=== PATIENT | female | born 1980 | race Caucasian/White ===

== ENCOUNTER → 2019-09-01 17:00 | Outpatient (CLI) | payer BC, SELFPAY ==
[2019-09-01 21:48] LABS: Chlamydia Trachomatis by PCR Negative (Negative); Neisserai gonorrhoeae by PCR Negative (Negative); Probe Check PASS; Sample Adequacy Control PASS; Specimen Processing Control PASS
== END ==
PROVIDERS: Referring Provider Obstetrics & Gynecology; Visit Provider Obstetrics & Gynecology
DX: Z11.3 Encounter for screening for infections with a predominantly sexual mode of transmission (principal)
CPT/HCPCS: 87491; 87591

== ENCOUNTER → 2019-09-30 10:45 | Outpatient (CLI) | payer BC, SELFPAY ==
[2019-09-30 13:19] LABS: Absolute Neutrophil Count 4.1 X10^3/uL (2.0-7.7); Basophil# 0.02 X10^3/uL; Basophil% 0.3 % (0-1); Eosinophil# 0.12 X10^3/uL; Hematocrit 38.6 % (37-47); Lymphocyte % 24.8 % (19-41); Mean Corp Hgb Conc 33.7 g/dL (32-36); Mean Corpuscular Hgb 31.7 pg (27.0-32.0); Mean Corpuscular Volume 94.1 fL (81-99); Mean Platelet Vol. 10.2 fl (6.2-12.0); Monocyte# 0.35 X10^3/uL; Monocyte% 5.8 % (0-10); NRBC Flagged by Analyzer 0 % (0-5); Neutrophil # 4.05 X10^3/uL (2.7-7.7); Neutrophil % 67.1 % (47-70); Platelet Count 193 K/mm3 (150-450); RBC Distribution Width CV 12.2 % (11.6-14.6); RBC Distribution Width SD 42.2 fl (35.1-43.9)
[2019-09-30 13:27] LABS: Color, Urine Yellow (Yellow); Glucose, Dipstick Normal (Normal); Ketone-Dipstick Negative (Negative); Leukocyte Esterase-Dipstick Negative /ul (Negative); Nitrite-Dipstick Negative (Negative); Occult Blood-Urine Negative /ul (Negative); Protein-Dipstick Negative (Negative); Urine Bilirubin Dipstick Negative (Negative); Urine Clarity Sl. Cloudy (Clear); Urine Urobilinogen Normal (Normal)
[2019-09-30 13:36] LABS: Amphetamine Urine VISTA NEGATIVE (<1000 ng/mL); Barbiturate Urine VISTA NEGATIVE (< 200 ng/mL); Benzodiazepine Urine VISTA NEGATIVE (< 200 ng/mL); Cocaine Urine VISTA NEGATIVE (< 300 ng/mL); Ecstacy Urine VISTA NEGATIVE (< 500 ng/mL); Methadone Urine VISTA NEGATIVE (< 300 ng/mL); PCP Urine VISTA NEGATIVE (< 25 ng/mL); THC Urine VISTA NEGATIVE (< 50 ng/mL); Vista UDS pH Range 6
[2019-09-30 13:37] LABS: Thyroid Stim Hormone (TSH) 0.36 uIU/mL (0.358-3.74)
[2019-09-30 14:18] LABS: HIV - WCH Non-Reactive (Nonreactive); Hepatitis B Surface Antigen Non-Reactive (Nonreactive); Hepatitis C Antibody Non-Reactive (Nonreactive); Rubella IgG 65.2 IU/mL
[2019-10-06 01:53] LABS: Prenatal RPR NONREACTIVE (NONREACTIVE)
== END ==
PROVIDERS: Visit Provider Obstetrics & Gynecology
DX: Z34.81 Encounter for supervision of other normal pregnancy, first trimester (principal)
CPT/HCPCS: 36415; 80307; 81002; 84443; 85025; 86703; 86762; 86803; 87340

== ENCOUNTER 2019-12-23 18:55 | Inpatient (IN) | payer BC, MEDICAID, SELFPAY ==
[2019-12-23 20:15] VITALS: BMI 35.2
[2019-12-23] MEDS: Lactated Ringers 1,000 ML 50 ML IV (20:30)
[2019-12-23 21:03] LABS: Absolute Lymphocyte Count 1.37 X10^3/uL (0.83-4.51); Absolute Neutrophil Count 3.2 X10^3/uL (2.0-7.7); Basophil# 0.01 X10^3/uL; Basophil% 0.2 % (0-1); Eosinophil# 0.18 X10^3/uL; Eosinophils% 3.4 % (0-5); Hematocrit 38.9 % (37-47); Hemoglobin 13.3 g/dL (12.0-15.0); Lymphocyte # 1.37 X10^3/ul (4.0); Mean Corp Hgb Conc 34.2 g/dL (32-36); Mean Corpuscular Hgb 33.3 pg (27.0-32.0); Mean Corpuscular Volume 97.3 fL (81-99); Mean Platelet Vol. 9.9 fl (6.2-12.0); Monocyte# 0.53 X10^3/uL; Monocyte% 10.1 % (0-10); NRBC Flagged by Analyzer 0 % (0-5); Neutrophil # 3.16 X10^3/uL (2.7-7.7); Neutrophil % 59.9 % (47-70); Platelet Count 195 K/mm3 (150-450); RBC Distribution Width CV 12.3 % (11.6-14.6); RBC Distribution Width SD 44.1 fl (35.1-43.9); White Blood Count 5.3 K/mm3 (4.4-11.0)
[2019-12-23] MEDS: miSOPROStol 200 MCG Tablet 400 MCG VAGINAL (21:09)
--- NOTE | 2019-12-23 21:56 | HP.PCM_ITS ---
- Problem List (1) Intrauterine Status: Acute (2) Encounter for induction of labor Status: Acute History Date of Admission: 12/23/19 Final JUAN: 04/26/20 Final JUAN Source: US <20 weeks Gestational age: 22 Weeks and 1 Days History of this : This is a 39 year-old, G [8], P [4], at 22 weeks gestational age. Arrived in [facility] office today for anatomy US. US revealed no FHT with a GA of 15w6d and NINA of 3. At 18 weeks in office there was a FHT of 169 on US and everything looked fine at that time. Stella reports never feeling FM with anterior placenta and doesn't think her water broke at all. Shared decision for IOL with Cytotec. Hx of 4 prior c-sections. Attending MD, anesthesia and pediatrics aware of IOL. Allergies No Known Allergies Allergy (Verified 12/23/19 20:16) Smoking Status: Former smoker Alcohol: None Number of Fetus(es): 1 History Past Pregnancies: Past Pregnancies Delivery Date Name GA/ Weeks Outcome Route Wt Sex Labor Length Anesthesia Delivery Location Provider FOB 10/18 38 viable 6.14 M 24 spinal [place] 09/19 6 SAB 06/20 39 viable 7.0 M 0 spinal [place] 10/21 39 viable 7.0 M 0 spinal [place] 10/23 6 SAB 05/24 7 SAB 08/25 39 viable 7.0 M 0 spinal [place] Labs: Mom's Problem List Problem Status Onset Code Intrauterine Acute Encounter for induction of labor Acute Z34.90 Mom's Labs & Results 12/23/19 12/23/19 20:30 20:30 WBC 5.3 RBC 4.00 L Hgb 13.3 Hct 38.9 MCV 97.3 MCH 33.3 H MCHC 34.2 RDW Std Deviation 44.1 H RDW Coeff of Jackelin 12.3 Plt Count 195 MPV 9.9 Immature Gran % (Auto) 0.400 Neut % (Auto) 59.9 Lymph % (Auto) 26.0 [place] % (Auto) 10.1 H Eos % (Auto) 3.4 Baso % (Auto) 0.2 Absolute Neuts (auto) 3.2 Absolute Lymphs (auto) 1.37 Nucleated RBC % 0 Blood Type O NEGATIVE Antibody Screen NEGATIVE Course Did the patient receive Yes care? Labs Blood Type: O RH: NEGATIVE RPR/VDRL/Syphilis Nonreactive Rubella status Immune HbSAg Negative Date Done: 09/30/19 Chlamydia Negative Gonorrhea Negative HIV/AIDS Non-Reactive Group B Strep: Not Done Current Obstetrical History Gestational Diabetes No Incompetent Cervix No Infertility No IUGR No Macrosomia No Hypertension/Pre-eclampsia No Placenta Previa/Abruption No PTL/PROM No Uterine anomaly No Oligohydramnios Yes Polyhydramnios No Multiple gestation No Past Medical History Asthma No Diabetes No Hypertension No Heart disease No Mitral valve prolapse No Neurologic/Seizure disorder/ No Migraines Kidney disease No Liver disease No Varicosities Yes Clotting disorders/Hx of DVT No Thyroid Dysfunction No Other medical diseases No Psychiatric disorders Yes: depression Major trauma No Abnormal PAP smear No Sleep apnea No Mammogram in the last 2 years No Social History Marital Status: Alleged father Lazarus Hx Smoking No Smoking Status Former smoker Expected Infant Delivery Method: Spontaneous Vaginal Number of Visits: 3 Review of Systems Constitutional: Denies: Chills, Fever, Weight Change HEENT: Denies: Head Aches, Sinus Congestion, Sinus Drainage Cardiovascular: Denies: Chest Pain, Palpitations Respiratory: Denies: Cough, Shortness of breath at rest, Sputum production Gastrointestinal: Denies: Abdominal Pain, Nausea, Vomiting Genitourinary: Denies: Dysuria Musculoskeletal: Denies: Joint Pain, Joint Tenderness Skin: Denies: Rash, Wounds Neurological: Denies: Numbness, Tingling, Focal weakness Psychiatric: Reports: Anxiety. Denies: Depression, Homicidal Ideations, Suicidal Ideations Hematologic/ Lymphatic: Denies: Easy Bruising, Easy Bleeding Physical Exam General: Alert, Oriented x3, No apparent distress HEENT: Atraumatic, Normocephalic. Negative for: Thyromegaly, Lymphadenopathy Cardiovascular: Regular rate, Regular Rhythm Lungs: Clear to auscultation Abdomen: Bowel Sounds Present, Gravid Neurological: Deep Tendon Reflexes 2+/4 and Symmetrical, Neuro grossly intact MID LEVEL NET DEVELOPER: Normal external genitalia. Negative for: Vulvar lesions Cervix Dilation (cm): 0 - closed/thick/high soft midposition Station: -3 Effacement (%): 0 Assessment/Plan All Active Problems Intrauterine (Acute) Encounter for induction of labor (Acute) A: This is a 39 year-old, G [8], P [4], at 22 weeks gestational age. Intrauterine demise SVE closed/high/thick Off and on crying, at bedside P: Admit for IOL with Cytotec protocol Xanax 1mg for anxiety Discussed pain medication options RN to review all options available to her Expect vaginal delivery
[2019-12-23] MEDS: Sertraline 50 MG Tablet PO (22:29)
[2019-12-23] MEDS: ALPRAZolam 0.5 MG Tablet 1 MG PO (22:29)
[2019-12-24] MEDS: miSOPROStol 200 MCG Tablet 400 MCG VAGINAL ×3 (03:26→11:43)
--- NOTE | 2019-12-24 03:30 | PCM.PN.BLA ---
Progress Note LABOR PROGRESS NOTE S: Not having any pain or cramping. Sleeping well and comfortable. O: AVSS SVE still thick/closed/high, but cervix soft and anterior A: Induction of labor for demise Tolerating Cytotec well P: Will place second dose of Cytotec vaginally To rest and call staff when starting to feel cramping or contractions. At that time will start continuous monitoring d/t hx of four c-sections. Expect
--- NOTE | 2019-12-24 07:30 | PCM.PN.BLA ---
Progress Note LABOR PROGRESS NOTE S: Not having any pain or cramping. Slept well. Wants to eat breakfast O: AVSS SVE still thick/closed/high, but cervix soft and anterior Awake, smiling in bed A: Induction of labor for demise Tolerating Cytotec well P: Third dose of Cytotec placed Regular diet order placed To call if cramping or contractions start Expect Will update attending Dr. Null on POC
[2019-12-24] MEDS: Acetaminophen 325 MG Tablet PO ×2 (11:44→15:45)
--- NOTE | 2019-12-24 12:01 | PCM.PN.BLA ---
Progress Note LABOR PROGRESS NOTE S: Starting to have slight cramping as well as a headache. Wants to get home tonight O: VSS SVE still thick/closed/high, but cervix soft and anterior Awake in bed and tearful wanting this to be over to go home to her boys tonight. A: Induction of labor for demise Tolerating Cytotec well Starting to express verbally more emotions and feelings about loss P: Fourth dose of Cytotec placed Regular diet order for lunch to continue To call if cramping becomes regular or worsens Expect Spoke with Dr. Null about POC. Agrees that for fifth dose may increase Cytotec dosing if patient wants to. Patient agreeable.
[2019-12-24] MEDS: Lactated Ringers 1,000 ML 50 ML IV (12:40)
[2019-12-24] MEDS: Ondansetron 4 MG/2 ML Vial IV (14:38)
[2019-12-24] MEDS: fentaNYL 100 MCG/2 ML Ampul IV ×2 (14:49→19:14)
[2019-12-24] MEDS: Lactated Ringers 500 ML 999 ML IV (14:53)
[2019-12-24] MEDS: Oxytocin 30 units/NS 500 ml 30 UNITS/500 ML IV.SOLN 334 UNITS IV (15:30)
--- NOTE | 2019-12-24 16:50 | NURSING ---
sheet metal worker helper in to see pt and discuss pastoral care with pt at this time.
--- NOTE | 2019-12-24 16:55 | CASEMGMT ---
SOCIAL WORK MET WITH MOB AND FOB IN ROOM. MUCH EMOTIONAL SUPPORT PROVIDED. MOB HAD REQUESTED BABY GIRL BE BAPTIZED AND CLINICAL NURSE SPECIALIST WAS CONTACTED AND ASSISTED IN CONTACTING A [employer]IAN HEATING ELEMENT BUILDER PER REQUEST OF MOB. HEATING ELEMENT BUILDERESPINOZA TO BE IN AROUND 6PM. THIS WORKER TO REMAIN AVAILABLE FOR NEEDS. STAFF MAYCO. MELANIA WYATT, PATTERN HANGER.
--- NOTE | 2019-12-24 17:29 | PCM.OPRPT ---
Problem List (1) Intrauterine Status: Inactive (2) Encounter for induction of labor Status: Inactive (3) Vaginal delivery following previous section, delivered Status: Acute Vaginal Delivery Maternal Presentation: Medically Indicated Induction Method of Induction: Cytotec Medical Reason for Induction: demise Amniotic Membrane Rupture Type: Spontaneous Rupture of Membrane time: 1420 Amniotic Fluid Description: Clear Final JUAN: 04/26/20 Final JUAN Source: US <20 weeks Gestational age: 22 Weeks and 2 Days Date of Procedure: 12/24/19 Pre-Operative Diagnosis: Medical induction of labor for demise Post-Operative Diagnosis: S/P Vaginal delivery after Surgery/ Procedure Performed: Spontaneous Vaginal Delivery Type of Anesthesia: None Description of Procedure: SROM of clear amniotic fluid at 1430 with contractions starting regularly soon after. Nitrous oxide mask in use when check writer salesperson's arrival to room. Patient not tolerating pain well and requesting something stronger. IV Fentanyl given and discontinued nitrous mask. At 1518 felt the urge to push. Non-viable fetus delivered at 1520 via rebekah breech. Cord clamped and cut by CNM. Fetus inspection revealed intact female fetus. After 30 minutes, placenta not detached. Dr. Null, attending MD called and okay given to allow placenta time for delivery. States up to 4 hours is fine. At 1802 patient wishes to get placenta out per provider since not delivering on its on. Cervix dilated to 5 and able to palpate uterus sitting on top of cervix, but she was unable to tolerate manual removal with check writer salesperson's hand. Attending okay with check writer salesperson removing placenta via ring forceps. Patient tried to sit on toilet to push prior. When check writer salesperson attempted to remove placenta SVE 2-3/50 with placenta detached sitting inside uterine cavity. Marriage Performer unable to manipulate placenta out. Attending Dr. Null called for removal. Patient given IV Fentanyl 50mg. At 1926 placenta was out and will be sent for pathology. See note by attending. EBL 250. Will get one more dose of Ampicillin and observe. Wants to discharge as soon as possible. Presentation: Rebekah Breech Placenta Disposition: Sent to Pathology Cord Vessel Description: unable to tell with decomposition Cord Entanglement: None A gender: Female Episiotomy Description: None Laceration: None Medications given after delivery: IV Pitocin
[2019-12-24] MEDS: Oxytocin 30 units/NS 500 ml 30 UNITS/500 ML IV.SOLN 167 UNITS IV (18:38)
[2019-12-24] MEDS: 0.9% Saline Lock 10 ML Syringe IV ×2 (19:14→21:49)
--- NOTE | 2019-12-24 19:26 | PLAC_PTH ---
PATIENT: LEI FLANAGAN LOC: [facility] U#:[id number] AGE/SX: 39/F ROOM: WP021 RE12/23/[address]: Mary Jo Howard CNM : 1980 BED: 1 DIS: 12/24/2019 SPEC #: [id number] RECD: 12/24/19 20:33 STATUS: VIDYA REWicho #: [id number] BANDAR: 12/24/19 19:[address]: Mary Jo Howard DEPT: SURGICAL PATHOLOGY RECD BY: Mihir Cordon ENTERED: 12/26/19 08:17 SP TYPE: PLACENTA OTHR DR: No Primary Care Phys Tissues: Placenta, NOS Procedures: Surgery Specimen Level V HEADER OPERATION: Vaginal delivery PRE-OP DIAGNOSIS: Intrauterine demise TISSUE SUBMITTED: Placenta MICROSCOPIC DIAGNOSIS Placenta: Placental disc - immature placenta (82.1 gm). - Submembranous hematoma (2 cm in greatest dimension). - Focal organized thrombus formation, blood vessels, surface. Membranes - no pathologic diagnosis. Umbilical cord - three blood vessels and no pathologic diagnosis. SJ:yash 12/27/19 COMMENT Case has been reviewed in consultation with Dr. Coffman who concurs with the above diagnosis. IDC:AM MICROSCOPIC DESCRIPTION Slides are reviewed. GROSS DESCRIPTION SPECIMEN: PLACENTA / CLINICAL INFORMATION: A. Weight: Not noted B. Gestational Age: 22 weeks C. Sex: Female The specimen consists of a placenta with attached membranes and umbilical cord. PLACENTAL WEIGHT (POST FIXATION): 82.1 gm PLACENTAL DIMENSIONS: 11.5 x 6.5 x 2.5 cm PLACENTAL SHAPE: Usual ovoid PLACENTAL WEIGHT FOR GESTATIONAL AGE: less than 10 percentile MEMBRANES - Present A. Insertion: Marginal B. Site of rupture from edge: At edge of placental disc C. Color of membrane: Blue-khan D. Abnormalities: None UMBILICAL CORD - Present A. Color: Blue-khan B. Insertion: Eccentric C. Length: 31 cm D. Diameter: 0.8 cm E. Number of vessels: Three F. Abnormalities: None PLACENTAL DISC - Present A. Color of surface: Blue-khan B. surface abnormalities: None C. Maternal cotyledons: Intact with minimal tears D. Attached retro placental clot: No clot E. Cut surface: Dark red and spongy F. Lesions: Serial sections reveal a submembranous hematoma measuring 2 cm in greatest dimension. G. Separate clot: Absent SECTIONS SUBMITTED: 1. Umbilical cord ( end inked) 2. Placental membranes 3. Placental disc, and maternal surfaces, submembranous hematoma. 4. Placental disc, and maternal surfaces 5. Placental disc, and maternal surfaces 6. Placental disc, and maternal surfaces AM:yash 12/26/19 TC:5 CPT: 14043
--- NOTE | 2019-12-24 19:40 | PCM.OPRPT ---
Report of Operation Date of Procedure: 12/24/19 Pre-Operative Diagnosis: Retained Placenta Post-Operative Diagnosis: Retained Placenta Surgery/Procedure Performed:: Extraction of Retained Placenta Description of Surgical Findings:: 15 cm endometrial cavity with retained products of conception. Cervix dilated approximately 3 to 4 cm. Umbilical cord from 20-week demise still attached to placenta. Type of Anesthesia:: IV Sedation Specimen's removed: Retained placenta Estimated Blood Loss (mL): 250 cc Fluids Replaced: Crystalloid and IV Pitocin Description of Procedure: Patient delivered a 20-week demise approximately 4 hours ago after Cytotec induction overnight. Despite IV Pitocin placenta has not delivered and cervix has not progressed. However the placenta seems to be detached inside the uterus. Patient is not having bleeding but she desires to go home. Patient was given IV sedation and speculum was placed in the vagina. The cervix was visualized and using ring forceps the placental edge was grasped and teased through the uterine cervix. Afterwards the uterus was gently curetted with a banjo curette and remaining placental tissue was removed. The uterus was examined with ultrasound and noted to be clear of placental tissue. Bleeding subsided and the procedure was terminated. Patient tolerated procedure well and we will continue IV fluids and monitoring for another 2 hours. She is scheduled to get another dose of ampicillin and is already had gentamicin. Plan is to send the patient home with oral Keflex for several days. Specimen to pathology: placenta Complications: none - Complications None
--- NOTE | 2019-12-24 19:57 | DCINST_ITS ---
Discharge Diet: No Restrictions Discharge Activity: Return to Normal Activity, May not drive while taking narcotic pain medications., May Shower May resume sexual activity in: 4-6 weeks Additional Activity Instructions:: Nothing in the vagina for 4-6 weeks. You may return to work/school in 6 weeks. To take Tylenol for fever >100.4. Additional Instructions: If you experience any of the following, contact your healthcare provider. * Bleeding that soaks a pad every hour for 2 hours * Fever 101.4 or higher * Unrelieved abdominal pain * Problems urinating (including inability to urinate or burning while urinating). * Visual changes * Severe headache * Flu-like symptoms * Pain or redness in one of both of your breasts * Pain, warmth, tenderness or swelling in your legs, especially the calf area * Frequent nausea and vomiting * Symptoms of depression or anxiety If you experience any of the following, call 911 or go to the nearest Emergency Room. * Chest pain * Problems breathing * Seizure activity * Partial or complete paralysis of a body part, slurred speech, weakness or drooping of the face, or a sudden inability to walk or hold your balance Allergies/Adverse Reactions: Allergies No Known Allergies Allergy (Verified 12/23/19 20:16) Medications to take at Discharge Caplet 12/23/19 Sertraline HCl [Zoloft] 50 mg PO DAILY 12/23/19 Cephalexin [Keflex] 500 mg PO BID #20 cap 12/24/19 The following prescriptions were given: Cephalexin [Keflex] 500 mg PO BID #20 cap Transmission Status: Pending to [facility]/pharmacy #[id number] Please Follow Up With: Mary Jo Howard CNM When: Call to make an appointment with your doctor in 2 weeks Primary Care Physician: Care Physician,No Primary [Primary Care Provider] - Test Results: Test results from this visit will be discussed in further detail at your follow- up appointment, if applicable.
[2019-12-24] MEDS: Acetaminophen 500 MG Tablet 1000 MG PO (20:33)
[2019-12-24 22:30] VITALS: BP 110/59; PULSE 58; RESP 18; TEMP 36.8
--- NOTE | 2019-12-24 22:52 | NURSING ---
2240-wheeled mom in wheel chair and discharged off unit. instructed on not driving and having her drive her home. reinforced getting her antibiotic and starting that in the morning. emotional support given.
[2019-12-28 13:47] LABS: Pathology Specimen OB SEE PATHOLOGY REPORT
== END 2019-12-24 23:40 | disposition home or self-care (01) | DRG 807 ==
LOC: WP 19:24
PROVIDERS: Admitting Provider Obstetrics & Gynecology; Visit Provider Obstetrics & Gynecology
DX: O36.4XX0 Maternal care for intrauterine death, not applicable or unspecified (principal); Z37.1 Single stillbirth; Z3A.22 22 weeks gestation of pregnancy; O73.0 Retained placenta without hemorrhage; O34.219 Maternal care for unspecified type scar from previous cesarean delivery; N85.8 Other specified noninflammatory disorders of uterus; O32.1XX0 Maternal care for breech presentation, not applicable or unspecified; Z87.891 Personal history of nicotine dependence; O99.344 Other mental disorders complicating childbirth; F32.9 Major depressive disorder, single episode, unspecified
CPT/HCPCS: 59050; 85025; 86850; 86900; 86901; 88307; 90384; 99218; J7120; A4216; G0378; J2405; J2790

== ENCOUNTER → 2020-07-19 | Outpatient (CLI) | payer BC, MEDICAID, SELFPAY ==
[2020-06-21 14:41] VITALS: BMI 35.7
[2020-07-24 09:36] LABS: Age Gdln ACOG Testing 30-65 (.)
[2020-07-24 16:12] LABS: HPV APTIMA, High Risk Negative (Negative); HPV Reflexed? YES, CHARGE PATIENT
== END | disposition home or self-care (01) ==
LOC: LABSPEC 14:48
PROVIDERS: Visit Provider Obstetrics & Gynecology
DX: Z12.4 Encounter for screening for malignant neoplasm of cervix (principal)
CPT/HCPCS: 87624; 88175; G0145